=== PATIENT | male | born 1970 | race Caucasian/White ===

== ENCOUNTER → 2025-01-09 16:01 | Outpatient (REF) | payer BC, SELFPAY | LOC: RCS 16:01 | PROVIDERS: ATTENDING PHYSICIAN Internal Medicine Cardiovascular Disease; FAMILY PHYSICIAN Nurse Practitioner Family | DX: I48.0 Paroxysmal atrial fibrillation (principal); I10 Essential (primary) hypertension; G47.33 Obstructive sleep apnea (adult) (pediatric) | CPT/HCPCS: 93306 ==

== ENCOUNTER 2025-01-18 06:35 | Day surgery (SDC) | payer BC, SELFPAY | END 2025-01-18 08:12 | disposition home or self-care (01) | LOC: CATH 06:35 | PROVIDERS: ATTENDING PHYSICIAN Internal Medicine Cardiovascular Disease; FAMILY PHYSICIAN Nurse Practitioner Family; OTHER PHYSICIAN Internal Medicine Cardiovascular Disease | DX: Z09 Encounter for follow-up examination after completed treatment for conditions other than malignant neoplasm (principal); I48.0 Paroxysmal atrial fibrillation; E66.9 Obesity, unspecified; Z68.30 Body mass index [BMI] 30.0-30.9, adult; I10 Essential (primary) hypertension; E11.9 Type 2 diabetes mellitus without complications; G47.33 Obstructive sleep apnea (adult) (pediatric) | CPT/HCPCS: 33285; C1764 ==

== ENCOUNTER 2025-01-24 05:53 | Day surgery (SDC) | payer BC, SELFPAY ==
[2024-12-28 08:21] VITALS: BMI 30.8
[2024-12-28 08:46] LABS: % Basophils 0.8 % (0-2); % Eosinophils 1.3 % (0-6); % Immature Granulocytes 0.6 % (0-0.5); % Monocytes 10.2 % (1.7-9.3); % Neutrophils 69.1 % (42.2-75.2); Absolute Basophils 0.1 10^3/uL (0-0.2); Absolute Eosinophils 0.1 10^3/uL (0-0.7); Absolute Immature Granulocytes 0.1 10^3/uL (0-0.05); Absolute Lymphocytes 1.5 10^3/uL (1.2-3.4); Absolute Monocytes 0.9 10^3/uL (0.1-0.6); Absolute Neutrophils 5.8 10^3/uL (1.4-6.5); Hematocrit 42.7 % (39.0-52.0); Hemoglobin 14.8 g/dL (13.0-18.0); Mean Corp Hgb Conc. 34.7 g/dL (33.0-37.0); Mean Corpuscular Hgb 29.5 pg (27.0-31.0); Mean Corpuscular Volume 85.1 fL (80.0-94.0); Mean Platelet Volume 10.3 fL (7.4-10.4); Nucleated Red Blood Cells % 0 % (-); Platelet Count 224 10^3/uL (130-400); Red Blood Cell Count 5.02 10^6/uL (4.70-6.10); Red Cell Dist. Width 12.3 % (11.5-14.5); White Blood Cell Count 8.4 10^3/uL (4.8-10.8)
[2024-12-28 08:55] LABS: INR 1.08; PT 14.5 Sec (11.4-14.6)
[2024-12-28 09:00] LABS: ALT (SGPT) 26 U/L (0-50); AST (SGOT) 21 U/L (17-59); Albumin 4.5 g/dl (3.5-5.0); Alkaline Phosphatase 60 U/L (38-126); Blood Urea Nitrogen 12 mg/dl (9-20); Calcium 10.1 mg/dl (8.4-10.2); Carbon Dioxide 31 mmol/L (22-30); Chloride 102 mmol/L (98-107); Estimated Creatinine Clearance > 125 ml/min; Glucose 214 mg/dl (70-99); Magnesium 2.1 mg/dl (1.6-2.3); Potassium 4.8 mmol/L (3.5-5.1); Sodium 143 mmol/L (135-145); Total Bilirubin 2.3 mg/dl (0.2-1.3); Total Protein 7.3 g/dl (6.3-8.2); eGFR > 60.00
--- NOTE | 2025-01-18 08:03 | ITS.CL.IMPLP ---
Environmental Air Specialist - Implant Loop
Implant Loop
Procedure Report:
ILR
Date of Procedure: January 18, 2025
Patient : 1970
Procedure: Insertable Loop Recorder Implant
Indication: A-fib monitoring
Implant: Linq: Medtronic; Model# LNQ22; Serial# [id number]
Technique: The patient was prepped and draped in the usual fashion.��Local anesthetic was applied to the left��prepectoral subcutaneous tissue. A subcutaneous pocket was created with blunt dissection. Hemostasis was excellent. The device was placed
in the pocket.. The skin was closed with steri-strips. The estimated blood��loss was minimal. There were no complications.
Final Programming: FVT 231 30/40 beats
����������������������������������VT 176 16 beats
����������������������������������Asystole 3 sec
����������������������������������Bernard 30 bpm for 4 beats
����������������������������������AF On AF only.
Conclusion: Uncomplicated insertable loop implant.
Recommendation: Routine ILR care.
cc: Dr. Irvin Camara
[2025-01-24] VITALS (11 sets, daily range): BP systolic 101–128; BP diastolic 70–89; BMI 30.9
[2025-01-24] MEDS: NSS 1000 IV (06:40)
[2025-01-24 06:53] LABS: Glucose - Point of Care 220 mg/dl (70-99)
[2025-01-24 08:53] LABS: ACT-LR - POC 276 Seconds (116-155)
[2025-01-24 09:12] LABS: ACT-LR - POC 285 Seconds (116-155)
--- NOTE | 2025-01-24 09:21 | ITS.CL.ABL ---
Automotive Glass Technician - Ablation
Ablation
Procedure Report:
ELECTROPHYSIOLOGY ABLATION STUDY
DATE:: January 24, 2025�����������������������������REFERRING: Dr. Taye Palmer
INDICATION: Paroxysmal supraventricular tachycardia in the form of atrial fibrillation.��Recent ILR implant. He is participating in the smile AF trial randomizing patients to PVI versus PVI plus left atrial posterior wall.
HISTORY: See H and P.��As above
ANTIARRHYTHMIC DRUG: Metoprolol
PRE-PROCEDURE BREA: No atrial thrombus on intracardiac ultrasound
PRESENTING RHYTHM: A-fib
'TIME-OUT':��called and confirmed.
SEDATION/ANESTHESIA:��provided via the anesthesia department using general anesthesia (LMA).
INTRAVENOUS/ARTERIAL ACCESS:
Right femoral venous - 8Fr
Left femoral venous - 8 Fr, 6 Fr
Ultrasound guidance for bilateral femoral vein access was utilized by me to obtain access with demonstration of normal anatomy
CHADS-VASC Score:
HAS-Bled Score
PROCEDURE:
1.��A decapolar CS catheter was placed within the CS for mapping and pacing.��This was also used as the reference catheter for the 3-D map.
2. The intracardiac ultrasound catheter was positioned in the RA to identify the FO for targeting of transseptal puncture, assist��in identification of the pulmonary vein ostia, monitoring pre and post ablation pulmonary vein flow velocities,
monitoring for 'bubble' formation during RF application as a sign of thermal injury,��and to monitor for pericardial effusion during mapping and ablation procedure.���Left atrial size, LV ejection fraction, and pulmonary vein flows were monitored
pre and post ablation procedure. The other valves were inspected and found to be free of significant regurgitation or stenosis.
3.��Half of the calculated heparin bolus was administered prior to the first transeptal puncture.��Transseptal puncture was performed to diagnose RA and LA pressure so that safety of LA mapping and ablation could be further assessed, and to access
the left atrium and pulmonary veins for mapping and ablation.��This entailed advancing an 16.8 Somali SL-1 sheath, RF wire with dilator into the superior vena cava and withdrawing both (monitoring intracardiac ultrasound, fluoroscopy and tip
pressure) with the tip oriented toward the atrial septum.��The fossa ovalis was engaged (indicated by sudden displacement of the sheath tip as well as tenting of the fossa seen on intracardiac ultrasound).��Left atrial access required a pass with
the [place]rough needle extended.��Left atrial catheter position was confirmed by pressure monitoring (RA mean pressure 8 mm Hg and LA mean presure 14 mm Hg), LA saturation (99%),��as well as fluoroscopy.��The sheath was advanced over the dilator
and positioned in the left atrium.���The remainder of the calculated heparin bolus was administered and heparin was
infused to maintain ACT at 300 -350 seconds throughout the case.
4.��RA pacing was performed via the proximal decapolar poles and LA pacing was performed via the distal decapolr poles.
5. A quadrapolar catheter was first positioned at the His position for His Bundle recording which was tagged via the 3-D Navex sytem, and then passed to the RVA for RV pacing and recording.
6. The ablation catheter was positioned through one of the transeptal seaths and a 20 pole ring mapping catheter was positioned through the second seath into the LA and then the ostia of the LIPV, LSPV, RSPV and the RIPV.��
7.��Next, a 3-D map was created using Navex.���A 3-D reconstructed CT image was compared to the 3-D Navex map to assist in anatomic interpretation, mapping and ablation.��The CT image and the NavX image were fused.
8. A total of 60 lesions were given for duration of the procedure. The left common ostium and right common ostium were addressed as separate inferior and superior veins with all of in basket pose rendering the veins isolated with entrance block.
During the 20-minute mandated waiting period we then performed posterior wall isolation including the roof posterior wall proper and floor utilizing flower pose. From a line from the inferior portion of the left inferior pulmonary vein to the right
inferior pulmonary vein down to the level of isolation at the central floor was 20 mm. This was greater than the 15 mm mandated protocol for posterior wall isolation. The patient converted to sinus rhythm spontaneously and exit block was confirmed
in all 4 pulmonary veins and the posterior wall. We paced the right phrenic nerve which demonstrated right diaphragm capture at the end of the procedure. We also performed EP study during the waiting period which demonstrated no other inducible
tachyarrhythmia with atrial extrastimuli.
Level of isolation was confirmed with the multipolar catheter.
9. Normal sinus node AV node function noted. The patient's ILR site was healing well.
TOTAL FLOURO TIME: 12.6 minutes 120 mGy
TOTAL RF DURATION: 0 minutes
REVERSAL OF HEPARIN: 35 mg of protamine, slow IV administration
COMPLICATIONS:
None
Intracardiac US shows no pericardial effusion post ablation.
SUMMARY:��
Complex left atrial mapping and ablation.
Isolation of the pulmonary veins and left atrial posterior wall as above as part of this mild AF protocol.
RECOMMENDATIONS:
1. Consider same-day discharge
2. Resume anticoagulation
3.��Out of bed 4 hours
4.��Outpatient follow-up as arranged
Copy to: Dr. Taye Palmer
[2025-01-24 10:05] LABS: Glucose - Point of Care 182 mg/dl (70-99)
[2025-01-24 12:16] LABS: Hematocrit 40.1 % (39.0-52.0); Hemoglobin 14.5 g/dL (13.0-18.0); Mean Corp Hgb Conc. 36.2 g/dL (33.0-37.0); Mean Corpuscular Volume 82.9 fL (80.0-94.0); Mean Platelet Volume 10.3 fL (7.4-10.4); Platelet Count 207 10^3/uL (130-400); Red Blood Cell Count 4.84 10^6/uL (4.70-6.10); Red Cell Dist. Width 12.5 % (11.5-14.5); White Blood Cell Count 11.4 10^3/uL (4.8-10.8)
[2025-01-24 12:37] LABS: Blood Urea Nitrogen 16 mg/dl (9-20); Calcium 9.1 mg/dl (8.4-10.2); Carbon Dioxide 23 mmol/L (22-30); Chloride 106 mmol/L (98-107); Estimated Creatinine Clearance > 125 ml/min; Glucose 267 mg/dl (70-99); Potassium 4.6 mmol/L (3.5-5.1); Sodium 139 mmol/L (135-145); eGFR > 60.00
--- NOTE | 2025-01-24 14:22 | W.PN.UPDATE ---
Update Note
Progress Note Update
54 yo WM s/p PVI (Same day). He denies cp,sob, noah diet, voiding, EKG SR, b/l groins c/d/i no HT, soft. He will resume Xarelto tonight at home. He will continue metoprolol. Activity restrictions reviewed. He will f/u Dr. Palmer in 2 mo. He is for
d/c home after 2pm.
== END 2025-01-24 14:20 | disposition home or self-care (01) ==
LOC: CATH 05:53
PROVIDERS: Nurse Practitioner Adult Health; ATTENDING PHYSICIAN Internal Medicine Cardiovascular Disease; FAMILY PHYSICIAN Nurse Practitioner Family; OTHER PHYSICIAN Internal Medicine Cardiovascular Disease
DX: I48.0 Paroxysmal atrial fibrillation (principal); E66.9 Obesity, unspecified; Z68.30 Body mass index [BMI] 30.0-30.9, adult; I10 Essential (primary) hypertension; E78.5 Hyperlipidemia, unspecified; G47.33 Obstructive sleep apnea (adult) (pediatric); E11.9 Type 2 diabetes mellitus without complications; G47.00 Insomnia, unspecified; M10.9 Gout, unspecified; Z79.01 Long term (current) use of anticoagulants
CPT/HCPCS: C1732; C1894; C1892; C1759; C1730; 36415; 75572; 80048; 80053; 82962; 83735; 85025; 85027; 85347; 85610; 86850; 86900; 86901; 93005; 93656; 93657; C1733; C1766; Q9967

== ENCOUNTER 2025-03-07 06:21 | Day surgery (SDC) | payer BC, SELFPAY ==
[2025-03-07 06:37] VITALS: BMI 30.4
[2025-03-07 07:08] VITALS: BP 144/91
[2025-03-07 07:09] LABS: Glucose - Point of Care 184 mg/dl (70-99)
--- NOTE | 2025-03-07 08:00 | ITS.CL.IMPLP ---
Box Truck Washer - Implant Loop
Implant Loop
Procedure Report:
ILR implant�explant
Date of Procedure: March 07, 2025
Patient : 1970
Procedure: Insertable Loop Recorder Implant with explant of prior ILR due to impending erosion
Indication: Post PVI monitoring
Implant: Reveal Medtronic: [employer]; Model# LNQ22; Serial# [id number] implanted today
Explant: Reveal Medtronic model LNQ22 see prior ILR implant report
Technique: The patient was prepped and draped in the usual fashion.��Local anesthetic was applied to the left��prepectoral subcutaneous tissue. The chronic ILR had impending erosion without clear evidence of breakthrough through the skin without
drainage and mild erythema. As such I elected to utilize the chronic incision and a more vertical tract was taken for the new device position. R wave of 0.4 was noted in the new vertical device tract. Antibiotic solution was given to the prior
device tract and to the new device tract prior to device insertion.. Hemostasis was excellent. 2 internal 3.0 Vicryl sutures in interrupted fashion were given to the subcutaneous tissue. 2 interrupted nonabsorbable Prolene sutures were given to
close the skin incision site and will be cut in the office in 7 days. Steri-Strips were also applied to the skin above the Prolene suture.. The estimated blood��loss was minimal. There were no complications.
Final Programming: FVT 231 30/40 beats
����������������������������������VT 176 16 beats
����������������������������������Asystole 3 sec
����������������������������������Bernard 30 bpm for 4 beats
����������������������������������AF On AF only.
Conclusion: Loop explant for impending erosion with loop implant in a more vertical tract and closed with interrupted Prolene suture. There was no evidence for site infection
Recommendation: Routine post implant care with wound check in 7 days and cutting of the Prolene suture. We will give him 5 days of oral Keflex 3 times daily at discharge
cc: Dr. Michael Camara
[2025-03-07 08:13] VITALS: BP 143/88
[2025-03-07 08:25] LABS: Glucose - Point of Care 185 mg/dl (70-99)
[2025-03-07 08:30] VITALS: BP 148/92
[2025-03-07 08:43] VITALS: BP 123/80
[2025-03-07] MEDS: KEFLEX 500 MG PO (08:48)
== END 2025-03-07 09:05 | disposition home or self-care (01) ==
LOC: CATH 06:21
PROVIDERS: ATTENDING PHYSICIAN Internal Medicine Cardiovascular Disease; FAMILY PHYSICIAN Nurse Practitioner Family; OTHER PHYSICIAN Internal Medicine Cardiovascular Disease
DX: Z09 Encounter for follow-up examination after completed treatment for conditions other than malignant neoplasm (principal); I10 Essential (primary) hypertension; E11.9 Type 2 diabetes mellitus without complications; I48.0 Paroxysmal atrial fibrillation; Z98.890 Other specified postprocedural states
CPT/HCPCS: 33285; 82962; C1764